=== PATIENT | male | born 1965 | race Hispanic/Latino ===

== ENCOUNTER 2018-11-28 14:30 | Inpatient (IN) | payer OTHER ==
[~2018-11-28] VITALS: Ht 167.6 cm; Wt 99.8 kg
[2018-11-28] MEDS ORDERED: INSULIN REGULAR, HUMAN 100 UNIT/1 ML 3ML VIAL SQ ONE (15:00)
[2018-11-28] MEDS ORDERED: SODIUM CHLORIDE 0.9% 1000ML 1,000 ML IV SCH ×3 (15:00→16:45)
--- NOTE | 2018-11-28 15:29 | Diagnostic Imaging Report ---
EXAMINATION: CHEST SINGLE (PORTABLE) COMPARISON: None INDICATION: ^CHEST PAIN ^[id number] ^1515 ^Y DISCUSSION: Frontal view of the chest obtained at 1516 hours. HEART AND MEDIASTINUM: The cardiomediastinal silhouette is unremarkable. LINES: None. LUNGS: The lungs are well inflated and clear. No pneumonia or pulmonary edema. PLEURA: No pleural effusion or pneumothorax. BONES AND SOFT TISSUES: No focal osseous lesion. The soft tissues are normal. IMPRESSION: No acute cardiopulmonary disease. Signed by: Dr. Gayathri Layne MD on 11/28/2018 3:25 PM
[2018-11-28 15:32] LABS: BASOPHILS # (AUTO) 0.1 (0.0-0.1); BASOPHILS % 0.7 % (0.0-1.0); EOSINOPHILS # (AUTO) 0.3 (0.0-0.4); EOSINOPHILS % 3.1 % (0.0-6.0); LYMPHOCYTES # (AUTO) 3.3 (1.0-3.2); LYMPHOCYTES % 36.4 % (18.0-39.1); MEAN CORPUSCULAR HEMOGLOBIN 37.4 pg (28-32); MEAN CORPUSCULAR HGB CONC 42.9 g/dL (31-35); MEAN CORPUSCULAR VOLUME 87.2 fL (81-99); MONOCYTES # (AUTO) 0.5 (0.2-0.8); NEUTROPHILS # (AUTO) 4.8 (2.1-6.9); NEUTROPHILS % 53.4 % (38.7-80.0); PLATELET COUNT 135 x10e3/uL (140-360)
[2018-11-28 15:43] LABS: INR 0.78; PROTHROMBIN TIME 11.3 seconds (11.9-14.5)
--- NOTE | 2018-11-28 15:51 | Diagnostic Imaging Report ---
Examination: CT head without contrast Clinical Indication: Headache; delayed speech. Technique: Transaxial noncontrast images from the skull base through the vertex were obtained. Sagittal and coronal reformatted images were done. Dose modulation, iterative reconstruction, and/or weight based adjustment of the mA/kV was utilized to reduce the radiation dose to as low as reasonably achievable. Comparison: None. Findings: Scalp: No abnormalities. Bones: Intact. No fractures. No blastic or lytic lesions. Brain sulci: Appropriate for patient's age. Ventricles: Normal in size and configuration. No hydrocephalus. Extra-axial space: No abnormalities. Parenchyma: No abnormal densities. No masses, hemorrhage, or acute or chronic cortical based vascular insults. Suprasellar region: No abnormalities. Craniocervical junction: The foramen magnum is patent. No Chiari one malformation. Impression: No intracranial abnormality. Signed by: Dr. Suyapa Delgado M.D. on 11/28/2018 3:47 PM
[2018-11-28 15:52] LABS: ALBUMIN 3.9 g/dL (3.5-5.0); ALBUMIN/GLOBULIN RATIO 0.4 (0.8-2.0); CALCIUM 10.1 mg/dL (8.4-10.2); CHLORIDE 87 mmol/L (98-107); CREATININE, SERUM 1.32 mg/dL (0.72-1.25); EST GLOMERULAR FILTRATION RATE 57 ML/MIN (60-); POTASSIUM 3.8 mmol/L (3.5-5.1); SODIUM 121 mmol/L (136-145)
[2018-11-28 16:07] LABS: ANION GAP 32.8 mmol/L (8-16)
[2018-11-28 16:10] LABS: CLARITY,URINE CLEAR (CLEAR); COLOR,URINE YELLOW (YELLOW)
[2018-11-28 16:11] LABS: KETONES,URINE 3+ (NEGATIVE); LEUKOCYTE ESTERASE ,URINE NEGATIVE (NEGATIVE); NITRITE,URINE NEGATIVE (NEGATIVE); PROTEIN,URINE DIPSTICK NEGATIVE (NEGATIVE); URINE UROBILINOGEN 0.2 mg/dL (0.2 - 1)
[2018-11-28 16:11] LABS: CARBON DIOXIDE < 5 mmol/L (22-29)
[2018-11-28 16:12] LABS: BACTERIA,URINE FEW /HPF; BILIRUBIN,URINE 1+ (NEGATIVE); EPITHELIAL CELLS,URINE FEW /LPF; RBC,URINE 0-5 /HPF (0-5)
--- NOTE | 2018-11-28 16:40 | NUR ---
PATIENT TO ROOM #5
[2018-11-28] MEDS ORDERED: INSULIN REGULAR, HUMAN 3ML VL 100 UNIT in SODIUM CHLORIDE 0.9% 100 ML IV SCH ×2 (16:45)
[2018-11-28] MEDS ORDERED: MAGNESIUM SULF 1GRAM/DEXTROSE 100 ML IV PRN (16:45)
--- NOTE | 2018-11-28 16:45 | NUR ---
RESPIRATORY AT BEDSIDE DRAWING BLOOD GAS
[2018-11-28 16:47] LABS: ALANINE AMINOTRANSFERASE < 24 IU/L (0-55); ALKALINE PHOSPHATASE 191 IU/L (40-150); BLOOD UREA NITROGEN 10 mg/dL (7-26); BUN/CREATININE RATIO 12 (6-25); CREATINE KINASE 122 IU/L (30-200); GLUCOSE 316 mg/dL (74-118)
[2018-11-28 17:02] LABS: ABG HCO3 17 mmol/L (23-28); ABG PCO2 34 mmHg (41-51); ABG PO2 97 mmHg (80-105)
[2018-11-28 17:23] LABS: HEMOGLOBIN 16.1 g/dL (14.0-18.0)
[2018-11-28 17:24] LABS: HEMATOCRIT 44.9 % (38.2-49.6)
--- NOTE | 2018-11-28 17:35 | NUR ---
VERBAL ORDER WITH READ BACK TO CHANGE TO 5 UNITS PER HOUR ON INSULIN DRIP BY DR LINDO.
[2018-11-28] MEDS: SODIUM CHLORIDE 0.9% 1000ML 1,000 ML IV SCH ×2 (17:40→21:22)
--- OUTSIDE RECORDS SUMMARY | 2018-11-28 18:15 | XMS REPORT ---
[facility] [place] Unavailable Care Team Providers Care Process Improvement Consultant Name Role Phone Fidelia LINDO Unavailable Unavailable Problems This patient has no known problems. Allergies, Adverse Reactions, Alerts This patient has no known allergies or adverse reactions. Medications This patient has no known medications. Results Test Description Test Time Test Comments Text Results Atomic Results Result Comments CT BRAIN WO 2018-11-28 15:46:00 [place] [address] Patient Name: ANA LUISA BARNES MR #: [id number] : 1965 Age/Sex: 53/M Req #: [id number] Adm Physician: Ordered by: TRINA LINDO MD Report #: [id number] Location: ER Room/Bed: Procedure: [id number] CT/CT BRAIN WO Exam Date: 11/28/18 Exam Time: 1525 REPORT STATUS: Signed Examination: CT head without contrast Clinical Indication: Headache; delayed speech. Technique: Transaxial noncontrast images from the skull base through the vertex were obtained. Sagittal and coronal reformatted images were done. Dose modulation, iterative reconstruction, and/or weight based adjustment of the mA/kV was utilized to reduce the radiation dose to as low as reasonably achievable. Comparison: None. Findings: Scalp: No abnormalities. Bones: Intact. No fractures. No blastic or lytic lesions. Brain sulci: Appropriate for patient's age. Ventricles: Normal in size and configuration. No hydrocephalus. Extra-axial space: No abnormalities. Parenchyma: No abnormal densities. No masses, hemorrhage, or acute or chronic cortical based vascular insults. Suprasellar region: No abnormalities. Craniocervical junction: The foramen magnum is patent. No Chiari one malformation. Impression: No intracranial abnormality. Signed by: Dr. Suyapa Delgado M.D. on 11/28/2018 3:47 PM Dictated By: SUYAPA FERRARI MD 46 Transcribed By: MAHOGANY on 11/28/181546 COPY TO: TRINA LINDO MD CHEST SINGLE (PORTABLE) 2018-11-28 15:25:00 [place] [address] Patient Name: ANA LUISA BARNES MR #: [id number] : 1965 Age/Sex: 53/M Req #: [id number] Adm Physician: Ordered by: TRINA LINDO MD Report #: [id number] Location: ER Room/Bed: Procedure: [id number] DX/CHEST SINGLE (PORTABLE) Exam Date: 11/28/18 Exam Time: 1515 REPORT STATUS: Signed EXAMINATION: CHEST SINGLE (PORTABLE) COMPARI SON: None INDICATION: CHEST PAIN [id number] 1515 Y DISCUSSION: Frontal view of the chest obtained at 1516 hours. HEART AND MEDIASTINUM: The cardiomediastinal silhouette is unremarkable. LINES: None. LUNGS: The lungs are well inflated and clear. No pneumonia or pulmonary edema. PLEURA: No pleural effusion or pneumothorax. BONES AND SOFT TISSUES: No focal osseous lesion. The soft tissues are normal. IMPRESSION: No acute cardiopulmonary disease. Signed by: Dr. Briana Layne MD on 11/28/2018 3:25 PM Dictated By: BRIANA LAYNE MD 1525 Transcribed By: MAHOGANY on 11/28/18 1525 COPY TO: TRINA LINDO MD
--- NOTE | 2018-11-28 19:09 | NUR ---
BEDSIDE REPOR TO NICOLE HAN
[2018-11-28 21:13] LABS: CHOL/HDL RATIO 26.9 (3.9-4.7); CHOLESTEROL 699 MD/DL (0-199); HDL CHOLESTEROL 26 MG/DL (40-60)
[2018-11-28] MEDS: DEXTROSE 5%/0.45% SOD CHL 1,000 ML IV SCH (22:04)
--- NOTE | 2018-11-28 22:04 | NUR ---
bs 169. ivf changed to d5 1/2ns at 100cc/hr per dka protocol.
[2018-11-28 22:11] LABS: TRIGLYCERIDES 7069 MG/DL (0-149)
[2018-11-28 22:21] LABS: ANION GAP 25.4 mmol/L (8-16); BLOOD UREA NITROGEN 8 mg/dL (7-26); BUN/CREATININE RATIO 9 (6-25); CALCIUM 7.7 mg/dL (8.4-10.2); CHLORIDE 99 mmol/L (98-107); CREATININE, SERUM 0.86 mg/dL (0.72-1.25); EST GLOMERULAR FILTRATION RATE > 60 ML/MIN (60-); GLUCOSE 148 mg/dL (74-118); POTASSIUM 4.4 mmol/L (3.5-5.1); SODIUM 128 mmol/L (136-145)
[2018-11-28 22:31] LABS: CARBON DIOXIDE 8 mmol/L (22-29); MAGNESIUM 5.4 MG/DL (1.3-2.1)
[2018-11-28 22:44] LABS: CREATINE KINASE MB 2.4 ng/mL (0-5.0)
[2018-11-29] MEDS ORDERED: SODIUM CHLORIDE 0.9% 1000ML 1,000 ML IV SCH (01:00)
[2018-11-29 02:04] LABS: BLOOD UREA NITROGEN 7 mg/dL (7-26); BUN/CREATININE RATIO 9 (6-25); CALCIUM 7.9 mg/dL (8.4-10.2); CARBON DIOXIDE 11 mmol/L (22-29); CHLORIDE 100 mmol/L (98-107); CREATININE, SERUM 0.81 mg/dL (0.72-1.25); EST GLOMERULAR FILTRATION RATE > 60 ML/MIN (60-); GLUCOSE 123 mg/dL (74-118); MAGNESIUM 3.6 MG/DL (1.3-2.1)
[2018-11-29 02:07] LABS: SODIUM 129 mmol/L (136-145)
--- NOTE | 2018-11-29 02:17 | NUR ---
bs 142. ivf increased to 125cc/hr per dka protocol.
[2018-11-29] MEDS ORDERED: POTASSIUM CHLORIDE 20MEQ/100ML 100 ML ONE ×2 (02:24→06:09)
[2018-11-29 02:28] LABS: CREATINE KINASE MB 2.9 ng/mL (0-5.0)
[2018-11-29] MEDS: POTASSIUM CHLORIDE 20MEQ/100ML 200 ML IV PRN ×2 (02:29→06:14)
[2018-11-29] MEDS: DEXTROSE 5%/0.45% SOD CHL 1,000 ML IV SCH ×3 (03:47→18:22)
--- NOTE | 2018-11-29 04:08 | NUR ---
bs 132. ivf increased to 150cc/hr per dka protocol.
[2018-11-29 05:59] LABS: ANION GAP 19.4 mmol/L (8-16); BLOOD UREA NITROGEN 7 mg/dL (7-26); BUN/CREATININE RATIO 8 (6-25); CALCIUM 8.1 mg/dL (8.4-10.2); CARBON DIOXIDE 13 mmol/L (22-29); CHLORIDE 100 mmol/L (98-107); CREATININE, SERUM 0.83 mg/dL (0.72-1.25); EST GLOMERULAR FILTRATION RATE > 60 ML/MIN (60-); GLUCOSE 133 mg/dL (74-118); POTASSIUM 3.4 mmol/L (3.5-5.1); SODIUM 129 mmol/L (136-145)
--- NOTE | 2018-11-29 06:05 | NUR ---
bs 149. ivf increased to 175cc/hr per dka protocol.
[2018-11-29] MEDS ORDERED: SENNOSIDES 8.6 MG TAB PO PRN (06:30)
--- NOTE | 2018-11-29 06:58 | NUR ---
History and Physical cc: high blood glucose HPI; 53yoM, PCP none, found to be in DKA, started on protocol. No hx DM. Pt admits to increased urination and feeling very fatigued. PMH: cig use PSHx: none allergies; see emr Fh/SH; FH DM; single; no etoh; 1ppd cigs; [employer] med;s see MAR ROS; no f/c/s/N/V/D/THAKUR/leg pain/back pain/skin rash/cp/sob V/S; rev'd PE tired appearing anicteric ns1s2 mod bs soft nt nd no e/t skin dry n. affect a&ox3; moore labs/meds; revd A/P: 53yoM DKA Newly dx DM Metabolic acidosis Sarah HTG Hypermagnesemia Obesity BMI 32.9 Cig use PLAN IVF IV insulin Fenofibrate and statin DM teaching; Nicotine patch. Leonel Lazar MD, PhD.
--- NOTE | 2018-11-29 07:00 | NUR ---
BEDSIDE REPORT FROM NICOLE Cheung RECEIVED PATIENT AWAKE AND ALERT, ORIENTED X 3. INSULIN INFUSING AT 5CC/HR D4 1/2 INFUSING AT 175CC/HR KCL 20 MEQ IV
--- NOTE | 2018-11-29 07:44 | NUR ---
DR. SHARA TAYLOR IN E.R. TO EVALUATE PATIENT
--- NOTE | 2018-11-29 08:00 | NUR ---
BLOOD SUGAR 146. D5 1/2 INCREASED TO 200 CC/HR
[2018-11-29] MEDS: SODIUM CHLORIDE 0.9% 1000ML 1,000 ML IV SCH ×2 (09:00→23:43)
[2018-11-29] MEDS: NICOTINE 21 MG/EA PATCH TOP SCH (09:00)
[2018-11-29] MEDS: FENOFIBRATE 145 MG TAB PO SCH (09:00)
[2018-11-29] MEDS: FAMOTIDINE 20 MG TAB PO SCH ×2 (09:00→16:45)
--- NOTE | 2018-11-29 09:18 | NUR ---
SCHEDULED Q4HR BMP/MAG DRAWN DAREN BETANCOURT
[2018-11-29 09:42] LABS: ANION GAP 18.5 mmol/L (8-16); BLOOD UREA NITROGEN 6 mg/dL (7-26); BUN/CREATININE RATIO 7 (6-25); CALCIUM 7.9 mg/dL (8.4-10.2); CARBON DIOXIDE 12 mmol/L (22-29); CHLORIDE 99 mmol/L (98-107); CREATININE, SERUM 0.86 mg/dL (0.72-1.25); EST GLOMERULAR FILTRATION RATE > 60 ML/MIN (60-); GLUCOSE 271 mg/dL (74-118); MAGNESIUM 2.6 MG/DL (1.3-2.1); POTASSIUM 3.5 mmol/L (3.5-5.1); SODIUM 126 mmol/L (136-145)
--- NOTE | 2018-11-29 09:51 | NUR ---
DIETARY CONSULT FOR NEW ONSET DIABETES
--- NOTE | 2018-11-29 10:00 | NUR ---
BLOOD SUGAR 240. D5 1/2 REDUCED TO 175 CC/HR.
[2018-11-29 10:03] LABS: CREATINE KINASE MB 2.2 ng/mL (0-5.0)
--- NOTE | 2018-11-29 10:37 | NUR ---
SPOKE WITH DR. Avila TAYLOR REGARDING A NEED FOR LEAD PRINCIPAL TECHNICAL ARCHITECT CONSULT. NO ORDERS AT THIS TIME, HE WOULD JUST LIKE TO CONSULT DIETARY FOR DIABETIC TEACHING FOR PATIENT
--- NOTE | 2018-11-29 11:00 | NUR ---
walkking report complete with kajal harris
--- NOTE | 2018-11-29 11:00 | NUR ---
BEDSIDE REPORT TO BEDSIDE RAVINDRA Cheung
--- NOTE | 2018-11-29 11:24 | NUR ---
PATIENT PLACED ON WAFFLE
[2018-11-29 13:19] LABS: ANION GAP 15.5 mmol/L (8-16); BLOOD UREA NITROGEN 5 mg/dL (7-26); BUN/CREATININE RATIO 7 (6-25); CALCIUM 7.5 mg/dL (8.4-10.2); CARBON DIOXIDE 14 mmol/L (22-29); CHLORIDE 103 mmol/L (98-107); CREATININE, SERUM 0.75 mg/dL (0.72-1.25); EST GLOMERULAR FILTRATION RATE > 60 ML/MIN (60-); GLUCOSE 232 mg/dL (74-118); POTASSIUM 3.5 mmol/L (3.5-5.1); SODIUM 129 mmol/L (136-145)
--- NOTE | 2018-11-29 16:00 | NUR ---
RESTING IN BED WITH NO S/SX OF DISTRESS
[2018-11-29 18:01] LABS: BLOOD UREA NITROGEN 5 mg/dL (7-26); BUN/CREATININE RATIO 6 (6-25); CALCIUM 7.5 mg/dL (8.4-10.2); CARBON DIOXIDE 12 mmol/L (22-29); CHLORIDE 102 mmol/L (98-107); CREATININE, SERUM 0.86 mg/dL (0.72-1.25); EST GLOMERULAR FILTRATION RATE > 60 ML/MIN (60-); GLUCOSE 308 mg/dL (74-118); MAGNESIUM 2.9 MG/DL (1.3-2.1); SODIUM 128 mmol/L (136-145)
--- NOTE | 2018-11-29 18:22 | NUR ---
BLOOD SUGAR ---399 AT [facility]. SPOKE WITH PT RE THIS. I QUESTIONED THE PT RE EXTRA FOOD IN BETWEEN MEALS WHEN HIS FAMILY CAME TO VISIT; AND HE DENIED ANY ADDITIONAL FOOD
--- NOTE | 2018-11-29 18:55 | NUR ---
PATIENTS BLOOD SUGAR ELEVATED. IN SPEAKING WITH HIM HE ADMITTED TO A FAMILY MEMBER BRINGING IN BEEF DONNA SOUP FROM OUTSIDE BUT WOULD NOT ADMIT TO ANYTHING ELSE. NOTICED MCDONALDS BAG IN TRASH. PATIENT AWARE HE CAN NOT EAT OUTSIDE FOOD AT THIS TIME, AND WE ARE MONITORING IS ADA DIET. HE SAID, "OKAY, I WON'T DO IT AGAIN"
--- NOTE | 2018-11-29 20:12 | NUR ---
BLOOD SUGAR--340. IVF INFUSING AT 50CC
--- NOTE | 2018-11-29 21:12 | NUR ---
BLOOD SUGAR--317. IVF INFUSING AT 50CC/HR. BMP/MAG DRAWN AND SENT TO THE LAB
[2018-11-29] MEDS: ATORVASTATIN 40 MG TAB PO SCH (21:15)
[2018-11-29 21:46] LABS: ANION GAP 19.4 mmol/L (8-16); BLOOD UREA NITROGEN 6 mg/dL (7-26); BUN/CREATININE RATIO 8 (6-25); CALCIUM 7.5 mg/dL (8.4-10.2); CARBON DIOXIDE 12 mmol/L (22-29); CHLORIDE 101 mmol/L (98-107); CREATININE, SERUM 0.79 mg/dL (0.72-1.25); EST GLOMERULAR FILTRATION RATE > 60 ML/MIN (60-); GLUCOSE 324 mg/dL (74-118); MAGNESIUM 2.1 MG/DL (1.3-2.1); POTASSIUM 3.4 mmol/L (3.5-5.1); SODIUM 129 mmol/L (136-145)
--- NOTE | 2018-11-29 21:56 | NUR ---
k+-3.4, gap--19.4. per protocol --k+ BOLUS TO BE GIVEN
--- NOTE | 2018-11-29 22:07 | NUR ---
BLOOD SUGAR --280. IVF INFUSING AT 50CC/HR. PT. REQUESTING FOOD AT THIS TIME.
[2018-11-29] MEDS ORDERED: POTASSIUM CHLORIDE 20MEQ/100ML 100 ML IV STA (22:09)
--- NOTE | 2018-11-29 23:24 | NUR ---
REPORT GIVEN TO NICOLE ZAVALA FOR CONTINUITY OF CARE.
--- NOTE | 2018-11-29 23:45 | NUR ---
RECEIVED REPORT FROM GWENDOLYN DAVILA. INSULIN DRIP RUNNING AT 10 UNITS PER HOUR NS @ 150CC PER HOUR K-RIDER 20MEQ RUNNING AT 10MEQ/HR.
[2018-11-30] VITALS (16 sets, daily range): BP systolic 96–132; BP diastolic 53–88
--- NOTE | 2018-11-30 00:31 | NUR ---
KCL INFUSED. PT AWAKE ALERT SKIN W/D RESP NONLAB. NAD NOTED. DENIES ANY COMPLAINTS AT THIS TIME.
--- NOTE | 2018-11-30 00:41 | NUR ---
NS @ 100CC/HR
[2018-11-30] MEDS: DEXTROSE 5%/0.45% SOD CHL 1,000 ML IV SCH ×3 (01:15→13:42)
--- NOTE | 2018-11-30 01:16 | NUR ---
FSBS 195. STOPPED NS. STARTED D5 1/2NS @ 100ML/HR. INSULIN DRIP RUNNING AT 10 UNITS PER HOUR. SALINE LOCK IN LACF INFILTRATED. DC'D SL INSERTED SL W 20G L HAND X 1 STICK, BLOOD DRAWN FOR LABS AND SENT
[2018-11-30 01:42] LABS: ANION GAP 17.4 mmol/L (8-16); BLOOD UREA NITROGEN 5 mg/dL (7-26); CARBON DIOXIDE 15 mmol/L (22-29); CHLORIDE 103 mmol/L (98-107); GLUCOSE 163 mg/dL (74-118); MAGNESIUM 2.6 MG/DL (1.3-2.1); POTASSIUM 3.4 mmol/L (3.5-5.1); SODIUM 132 mmol/L (136-145)
[2018-11-30 02:07] LABS: BUN/CREATININE RATIO 7 (6-25); CREATININE, SERUM 0.68 mg/dL (0.72-1.25); EST GLOMERULAR FILTRATION RATE > 60 ML/MIN (60-)
--- NOTE | 2018-11-30 03:14 | NUR ---
FSBS 106, D5 1/2NS INCREASED TO 125ML/H. AWAKE ALERT SKIN W/D RESP NONLAB. NAD NOTED.
[2018-11-30] MEDS: POTASSIUM CHLORIDE 20MEQ/100ML 100 ML IV PRN (03:15)
[2018-11-30] MEDS ORDERED: POTASSIUM CHLORIDE 20MEQ/100ML 100 ML ONE (03:21)
[2018-11-30] MEDS ORDERED: SODIUM CHLORIDE 0.9% 100 ML ONE (04:04)
[2018-11-30] MEDS: SODIUM CHLORIDE 0.9% 1000ML 1,000 ML IV SCH ×5 (04:30→22:12)
[2018-11-30] MEDS ORDERED: INFLUENZA VIRUS VAC SPLIT INJ 0.5 ML SYR IM SCH (06:20)
[2018-11-30] MEDS ORDERED: PNEUMOCOCCAL VACCINE POLYVALENT 23 MCG/0.5 ML VIAL IM SCH (06:20)
[2018-11-30 07:17] LABS: BLOOD UREA NITROGEN < 5 mg/dL (7-26); BUN/CREATININE RATIO 8 (6-25); CALCIUM 8.3 mg/dL (8.4-10.2); CARBON DIOXIDE 17 mmol/L (22-29); CHLORIDE 102 mmol/L (98-107); EST GLOMERULAR FILTRATION RATE > 60 ML/MIN (60-); GLUCOSE 80 mg/dL (74-118); MAGNESIUM 1.9 MG/DL (1.3-2.1); SODIUM 134 mmol/L (136-145)
[2018-11-30] MEDS: POTASSIUM CHLORIDE 20MEQ/100ML 200 ML IV PRN (07:41)
[2018-11-30] MEDS: FAMOTIDINE 20 MG TAB PO SCH ×2 (07:41→17:40)
[2018-11-30] MEDS: NICOTINE 21 MG/EA PATCH TOP SCH (09:06)
[2018-11-30] MEDS: FENOFIBRATE 145 MG TAB PO SCH (09:06)
[2018-11-30] MEDS ORDERED: ACETAMINOPHEN 325 MG TAB PO ONE (09:15)
--- NOTE | 2018-11-30 11:11 | NUR ---
AT 7AM, D5 1/2 NS RATE INCREASED TO 175ML/HR FROM 150, INSULIN GTT REMAINS AT 10UNITS/HR. BLOOD GLUCOSE 71MG/DL 0900 BG 193MG/DL. NO RATE CHANGES 1100AM BG 207 DECREASED D5 1/2NS TO 150ML/HR. NO RATE CHANGES TO INSULIN GTT.
[2018-11-30] MEDS ORDERED: POTASSIUM CHLORIDE 20 MEQ TAB CR PO STA (12:13)
[2018-11-30] MEDS ORDERED: SODIUM CHLORIDE 0.9% 1000ML 1,000 ML IV SCH (12:15)
--- NOTE | 2018-11-30 12:18 | NUR ---
IM- progress note O/N; insulin gtt; ROS; no f/c/s/N/V/D/THAKUR/leg pain/back pain/skin rash/cp/sob V/S; rev'd PE tired appearing anicteric ns1s2 mod bs soft nt nd no e/t skin dry n. affect a&ox3; moore labs/meds; revd A/P: 53yoM DKA Newly dx DM Metabolic acidosis Sarah HTG Hypermagnesemia Obesity BMI 32.9 Cig use PLAN IVF IV insulin Fenofibrate and statin DM teaching; Nicotine patch. 11/30 give 20U lantus then turn off gtt 2hrs later; aspart 10 units AC; 2liter bolus now; labs this pm. Leonel Lazar MD, PhD.
[2018-11-30] MEDS ORDERED: INSULIN REGULAR, HUMAN 100 UNIT/1 ML 3ML VIAL ONE (12:32)
[2018-11-30 12:52] LABS: ANION GAP 13.3 mmol/L (8-16); BLOOD UREA NITROGEN < 5 mg/dL (7-26); CALCIUM 8.1 mg/dL (8.4-10.2); CARBON DIOXIDE 19 mmol/L (22-29); CHLORIDE 104 mmol/L (98-107); CREATININE, SERUM 0.65 mg/dL (0.72-1.25); EST GLOMERULAR FILTRATION RATE > 60 ML/MIN (60-); GLUCOSE 192 mg/dL (74-118); MAGNESIUM 1.8 MG/DL (1.3-2.1); POTASSIUM 3.3 mmol/L (3.5-5.1); SODIUM 133 mmol/L (136-145)
[2018-11-30 12:58] LABS: BUN/CREATININE RATIO 8 (6-25)
[2018-11-30] MEDS ORDERED: INSULIN GLARGINE 100 UNITS/ML VIAL SQ ONE (13:30)
[2018-11-30 16:13] LABS: ANION GAP 12.6 mmol/L (8-16); BLOOD UREA NITROGEN < 5 mg/dL (7-26); CALCIUM 7.9 mg/dL (8.4-10.2); CARBON DIOXIDE 19 mmol/L (22-29); CHLORIDE 107 mmol/L (98-107); CREATININE, SERUM 0.66 mg/dL (0.72-1.25); EST GLOMERULAR FILTRATION RATE > 60 ML/MIN (60-); GLUCOSE 203 mg/dL (74-118); MAGNESIUM 1.7 MG/DL (1.3-2.1); POTASSIUM 3.6 mmol/L (3.5-5.1); SODIUM 135 mmol/L (136-145)
[2018-11-30 16:17] LABS: BUN/CREATININE RATIO 8 (6-25)
[2018-11-30] MEDS ORDERED: INSULIN ASPART 70/30 100 UNITS/ML VIAL SC SCH (16:30)
--- NOTE | 2018-11-30 17:50 | NUR ---
Nutrition Screen Note RD Recommendation for Physician: -Continue ADA diet as ordered -RD provided diet education on 11/30 Plan of Care: RD following, monitoring for tolerance and adequacy, diet education Nutrition reason for involvement: RN Consult DM education Primary Diagnose(s): DKA PMH: cigarette use Ht: 66in Wt: 222.31lb BMI: 35.9kg/m2 IBW: 142lb RD Assessment: (11/30) Chart reviewed. Labs and meds reviewed. 53yo M, who was admitted for high blood glucose. HbA1c at 17.5%. Visited pt in the room. Pt denied any nausea or vomiting. Current diet was well tolerated. No chewing or swallowing difficulty noted. LBM 11/30. Pt attempted weight loss since he was dx with DM in 08/2018. RD provided diet education as consulted. Will continue to monitor and follow. Current Diet: ADA diet Malnutrition Evaluation (11/30/2018) The patient does not meet criteria for a specified degree of malnutrition at this time. Will re-evaluate at follow-up as appropriate. Diet Education Needs Assessment: Diet education indicated, pt was agreeable with plan. Learner(s): pt Time spent: 25minutes Barriers: No barriers identified. Cultural/Language Modifications: No cultural/language modifications noted. Pt speaks Sinhala. Readiness: Acceptance Method: Handouts, explanation Topics: Carbohydrate exchanges, Carbohydrate counting handouts, Reading the nutrition label, meal planning tips, exercise tips, servings/portion sizes Understanding/Compliance: Expect good understanding/compliance from pt. Will benefit from reinforcement. All questions have been answered. Nutrition Care Level: low Signed: Keira Taylor, MS, RD, LD
--- NOTE | 2018-11-30 18:55 | NUR ---
lantus given per md order at 1400. insulin gtt and ivf's off at 1600. 2L boluses given per md order. premeal insulin given with dinner. pt doing well and is in good spirits. intelligence operations in patient room educating him.
--- NOTE | 2018-11-30 19:03 | NUR ---
security shift manager report given to night RN
[2018-11-30] MEDS ORDERED: INSULIN ASPART 70/30 100 UNITS/ML VIAL SC ONE (22:00)
[2018-11-30] MEDS: ATORVASTATIN 40 MG TAB PO SCH (22:12)
[2018-11-30] MEDS ORDERED: ACETAMINOPHEN 325 MG TAB PO PRN (23:00)
[2018-11-30] MEDS ORDERED: ONDANSETRON HCL INJ 2MG/ML 2ML 2 MG/ML VIAL IV PRN (23:00)
[2018-12-01] VITALS (8 sets, daily range): BP systolic 100–135; BP diastolic 58–89
[2018-12-01 01:46] LABS: ALANINE AMINOTRANSFERASE 20 IU/L (0-55); ALBUMIN 2.7 g/dL (3.5-5.0); ALBUMIN/GLOBULIN RATIO 0.9 (0.8-2.0); ALKALINE PHOSPHATASE 91 IU/L (40-150); BLOOD UREA NITROGEN < 5 mg/dL (7-26); CALCIUM 8.4 mg/dL (8.4-10.2); CARBON DIOXIDE 19 mmol/L (22-29); CREATININE, SERUM 0.74 mg/dL (0.72-1.25); EST GLOMERULAR FILTRATION RATE > 60 ML/MIN (60-); GLUCOSE 268 mg/dL (74-118)
[2018-12-01 02:05] LABS: THYROID STIMULATING HORMONE 2.305 uIU/mL (0.350-4.940)
[2018-12-01 02:07] LABS: ANION GAP 14.7 mmol/L (8-16); CHLORIDE 102 mmol/L (98-107); POTASSIUM 3.7 mmol/L (3.5-5.1); SODIUM 131 mmol/L (136-145)
[2018-12-01 02:09] LABS: BUN/CREATININE RATIO 7 (6-25)
[2018-12-01 04:59] LABS: BASOPHILS # (AUTO) 0.1 (0.0-0.1); BASOPHILS % 0.8 % (0.0-1.0); EOSINOPHILS # (AUTO) 0.1 (0.0-0.4); EOSINOPHILS % 1.9 % (0.0-6.0); HEMATOCRIT 38.4 % (38.2-49.6); HEMOGLOBIN 13.2 g/dL (14.0-18.0); LYMPHOCYTES # (AUTO) 2.5 (1.0-3.2); LYMPHOCYTES % 39.1 % (18.0-39.1); MEAN CORPUSCULAR HGB CONC 34.4 g/dL (31-35); MEAN CORPUSCULAR VOLUME 90.1 fL (81-99); MONOCYTES # (AUTO) 0.7 (0.2-0.8); MONOCYTES % 10.9 % (4.4-11.3); PLATELET COUNT 97 x10e3/uL (140-360); RED BLOOD COUNT 4.26 x10e6/uL (4.3-5.7); RED CELL DISTRIBUTION WIDTH 13.2 % (11.7-14.4)
[2018-12-01 05:35] LABS: ANION GAP 12.4 mmol/L (8-16); BLOOD UREA NITROGEN < 5 mg/dL (7-26); BUN/CREATININE RATIO 7 (6-25); CALCIUM 8.4 mg/dL (8.4-10.2); CARBON DIOXIDE 22 mmol/L (22-29); CHLORIDE 101 mmol/L (98-107); CREATININE, SERUM 0.75 mg/dL (0.72-1.25); EST GLOMERULAR FILTRATION RATE > 60 ML/MIN (60-); GLUCOSE 250 mg/dL (74-118); MAGNESIUM 1.7 MG/DL (1.3-2.1); POTASSIUM 3.4 mmol/L (3.5-5.1); SODIUM 132 mmol/L (136-145)
[2018-12-01] MEDS ORDERED: POTASSIUM CHLORIDE 20 MEQ TAB CR PO STA (06:33)
--- NOTE | 2018-12-01 06:34 | NUR ---
IM- progress note O/N; insulin gtt; ROS; no f/c/s/N/V/D/THAKUR/leg pain/back pain/skin rash/cp/sob V/S; rev'd PE tired appearing anicteric ns1s2 mod bs soft nt nd no e/t skin dry n. affect a&ox3; moore labs/meds; revd A/P: 53yoM DKA Newly dx DM Metabolic acidosis Sarah HTG Hypermagnesemia Obesity BMI 32.9 Cig use PLAN IVF IV insulin Fenofibrate and statin DM teaching; Nicotine patch. 11/30 give 20U lantus then turn off gtt 2hrs later; aspart 10 units AC; 2liter bolus now; labs this pm. 12/01 replace K; insulin titrated up; d/c planning; Leonel Lazar MD, PhD.
[2018-12-01] MEDS ORDERED: NICODERM CQ1 EAC2 TOP (06:35)
[2018-12-01] MEDS ORDERED: SENOKOT8.6 MG PO (06:35)
[2018-12-01] MEDS ORDERED: Insulin Glargine SQ (06:35)
[2018-12-01] MEDS ORDERED: FENOFIBRATE145 MG PO (06:35)
[2018-12-01] MEDS ORDERED: Atorvastatin PO (06:35)
[2018-12-01] MEDS ORDERED: FAMOTIDINE20 MG PO (06:35)
[2018-12-01] MEDS ORDERED: Insulin Aspart 70/30 10ML Vial SC (06:35)
[2018-12-01] MEDS ORDERED: MAGNESIUM SULF 1GRAM/DEXTROSE 100 ML IV ONE (06:36)
[2018-12-01] MEDS: POTASSIUM CHLORIDE 20MEQ/100ML 100 ML IV PRN (07:01)
[2018-12-01] MEDS: FAMOTIDINE 20 MG TAB PO SCH ×2 (07:53→17:07)
[2018-12-01] MEDS: FENOFIBRATE 145 MG TAB PO SCH (08:02)
[2018-12-01] MEDS: NICOTINE 21 MG/EA PATCH TOP SCH (08:02)
[2018-12-01] MEDS: INSULIN ASPART 70/30 100 UNITS/ML VIAL SC SCH ×3 (08:03→16:30)
[2018-12-01] MEDS: INSULIN GLARGINE 100 UNITS/ML VIAL SQ SCH (08:03)
--- NOTE | 2018-12-01 09:44 | NUR ---
Report given to Shun SNOW, will transfer once room 286 cleaned. will continue to monitor
--- NOTE | 2018-12-01 10:45 | NUR ---
RECIEVED PT FROM ICU VIA AAOX3,NO DISTRESS NOTED,DENIES PAIN.
[2018-12-01] MEDS: INSULIN REGULAR, HUMAN 100 UNIT/1 ML 3ML VIAL SQ SCH ×3 (11:30→20:23)
[2018-12-01] MEDS ORDERED: DEXTROSE 50% SYRINGE 50 ML IV PRN (11:30)
[2018-12-01] MEDS ORDERED: INFLUENZA VIRUS VAC SPLIT INJ 0.5 ML SYR IM SCH (11:45)
[2018-12-01] MEDS ORDERED: PNEUMOCOCCAL VACCINE POLYVALENT 23 MCG/0.5 ML VIAL IM SCH (11:45)
--- NOTE | 2018-12-01 11:45 | NUR ---
GLUCOSE [address] TAYLOR RE INSULIN SLIDIDNG SCALE,ORDERS WRITTEN
--- NOTE | 2018-12-01 17:52 | NUR ---
PT UP IN BED NO DISTRESS NTOED ,DENIES PAIN GLUCOSE 299 INSULIN GIVEN
--- NOTE | 2018-12-01 18:50 | NUR ---
patient received awake, alert, lying quietly in bed. no c/o pain noted at this time. pm assessment complete. patient instructed to call for assistance when needed.
[2018-12-01] MEDS: ATORVASTATIN 40 MG TAB PO SCH (20:23)
[2018-12-02] VITALS (7 sets, daily range): BP systolic 104–131; BP diastolic 59–83
--- NOTE | 2018-12-02 07:25 | NUR ---
PATIENT SITTING UP IN BED WORKING ON HIS LAP TOP, NO COMPLAIN VOICED. BED IN LOWER POSITION, CALL LIGHT AT REACH.
[2018-12-02] MEDS: INSULIN ASPART 70/30 100 UNITS/ML VIAL SC SCH ×2 (07:30→11:30)
[2018-12-02] MEDS: INSULIN REGULAR, HUMAN 100 UNIT/1 ML 3ML VIAL SQ SCH ×3 (07:30→16:30)
[2018-12-02] MEDS: FAMOTIDINE 20 MG TAB PO SCH ×2 (08:04→16:30)
[2018-12-02] MEDS: INSULIN GLARGINE 100 UNITS/ML VIAL SQ SCH (08:50)
[2018-12-02] MEDS: NICOTINE 21 MG/EA PATCH TOP SCH (09:00)
[2018-12-02] MEDS: FENOFIBRATE 145 MG TAB PO SCH (09:39)
--- NOTE | 2018-12-02 11:28 | NUR ---
PATIENT IN BED RESTING WITH EYES CLOSED, NO RESPIRATORY DISTRESS OBSERVED. BED IN LOWER POSITION, CALL LIGHT AT REACH.
[2018-12-02] MEDS ORDERED: INSULIN GLARGINE 100 UNITS/ML VIAL SQ ONE (15:00)
--- NOTE | 2018-12-02 16:07 | NUR ---
PATIENT AMBULATING IN SID[address] WAY, NO COMPLAIN VOICED. WILL CLOSELY MONITOR.
[2018-12-02] MEDS ORDERED: Insulin Glargine SQ (16:18)
[2018-12-02] MEDS ORDERED: Insulin Aspart 70/30 10ML Vial SC (16:18)
[2018-12-02] MEDS ORDERED: INSULIN ASPART 70/30 100 UNITS/ML VIAL SC SCH (16:30)
[2018-12-02 17:33] LABS: MAGNESIUM 1.8 MG/DL (1.3-2.1); POTASSIUM 3.6 mmol/L (3.5-5.1)
--- NOTE | 2018-12-02 19:18 | NUR ---
PT AMBULATE WITH A STEADY GAIT OF THE UNIT WITH ALL OF HIS BELONGS. NO RESPIRATORY DISTRESS NOTED.
[2018-12-03] MEDS ORDERED: INSULIN GLARGINE 100 UNITS/ML VIAL SQ SCH (09:00)
== END 2018-12-02 19:30 | disposition home or self-care (01) | DRG 638 ==
LOC: ER 14:30 → ERHOLD 18:13 → ICU 11-30 04:15 → MED/SURG3 12-01 10:37
PROVIDERS: ADMIT Internal Medicine; ATTEND Internal Medicine
DX: E11.10 Type 2 diabetes mellitus with ketoacidosis without coma (principal); E87.2 Acidosis; N17.9 Acute kidney failure, unspecified; Z79.4 Long term (current) use of insulin; E83.41 Hypermagnesemia; E66.9 Obesity, unspecified; Z68.32 Body mass index [BMI] 32.0-32.9, adult; F17.210 Nicotine dependence, cigarettes, uncomplicated
CPT/HCPCS: 36415; 36600; 70450; 71045; 80048; 80053; 80061; 81001; 82550; 82553; 82805; 82948; 83036; 83735; 84132; 84443; 84484; 85025; 85610; 85730; 90732; 93005; 99284; J1815; J3475; J3480; J7030; J7050